=== PATIENT | male | born 1980 | race Caucasian/White ===

== ENCOUNTER 2019-01-22 20:28 | Emergency (ER) | payer SELFPAY ==
[~2019-01-22] VITALS: Ht 165.1 cm; Wt 71.3 kg
[2019-01-22 20:35] VITALS: BP 122/70
--- NOTE | 2019-01-22 20:37 | NUR ---
TO LOBBY A/W BED AMBULATORY
--- NOTE | 2019-01-22 20:58 | NUR ---
PT TAKEN TO BED 12.
--- NOTE | 2019-01-22 21:08 | NUR ---
38 Y/O M PRESENTED TO ED WITH C/O GENERALIZED ABDOMEN PAIN X3 DAYS. 8/10 PAIN, BURNING AND PRESSURE-LIKE. PER PT "HAD THIS PAIN FOR OVER A YEAR BUT IT HAS GOTTEN WORSE." TENDERNESS TO LOWER ABDOMEN. DENIES DYSURIA AND HEMATURIA. -N/V/D. FAMILY AT BEDSIDE. ERMD NOTIFIED. WILL CONTINUE TO MONITOR.
[2019-01-22] MEDS ORDERED: NACL 0.9% 1,000 ML IV SCH (21:33)
[2019-01-22] MEDS ORDERED: KETOROLAC 15 MG/ML VIAL IVP ONE (21:35)
[2019-01-22 22:40] LABS: BASOPHILS % (AUTO) 0.1 % (0.0-2.0); HEMATOCRIT 42.9 % (36-52); HEMOGLOBIN 14.3 g/dL (12.0-18.0); LYMPHOCYTES # (AUTO) 0.9 K/uL (2.0-11.5); MEAN CORPUSCULAR HEMOGLOBIN 30 pg (27-31); MEAN CORPUSCULAR HGB CONC 33 g/dL (33-37); MONOCYTES # (AUTO) 1.4 K/uL (0.8-1.0); MONOCYTES % (AUTO) 11.4 % (1.7-9.3); NEUTROPHILS # (AUTO) 9.6 K/uL (1.8-7.7); NEUTROPHILS % (AUTO) 81.2 % (42.2-75.2); PLATELET COUNT (AUTO) 289 K/uL (140-450); RED BLOOD CELL COUNT(AUTO) 4.77 MIL/uL (4.20-6.10); RED CELL DISTRIBUTION WIDTH 13.9 % (11.6-13.7); WHITE BLOOD COUNT (AUTO) 11.8 K/uL (4.8-10.8)
[2019-01-22 22:54] LABS: LYMPHOCYTES % (AUTO) 7.3 % (20.5-51.1)
[2019-01-22 23:03] LABS: ANION GAP 12.1 (8-16); CARBON DIOXIDE 28.4 mmol/L (21-32); CREATININE 0.8 mg/dL (0.7-1.3); POTASSIUM 3.5 mmol/L (3.5-5.1)
[2019-01-22 23:09] LABS: ALBUMIN 3.5 g/dL (3.4-5.0); TOTAL BILIRUBIN 0.6 mg/dL (0.0-1.0)
[2019-01-22 23:09] LABS: APPEARANCE,URINE CLEAR (CLEAR); BILIRUBIN,URINE NEGATIVE (NEGATIVE); BLOOD, URINE NEGATIVE (NEGATIVE); COLOR,URINE YELLOW (YELLOW); LEUKOCYTE ESTERASE ,URINE NEGATIVE (NEGATIVE); NITRITE, URINE NEGATIVE (NEGATIVE); UGLUCOSE NEGATIVE (NEGATIVE)
--- NOTE | 2019-01-22 23:33 | NUR ---
COVERING FOR PRIMARY RN. PT RESTING COMFORTABLY IN BED WITH FAMILY AT BEDSIDE. PT STATES IMPROVEMENT OF PAIN. . PT WAITING FOR RE-EVALUATION FROM ERMD. ALL NEEDS ADDRESSED AT THIS TIME. ALL QUESTIONS ANSWERED AND UPDATED PATIENT ON STATUS.
--- NOTE | 2019-01-23 00:01 | NUR ---
IV removed, catheter intact and site benign. Applied folded 4x4 gauze and tape to stop bleeding.
[2019-01-23 00:02] VITALS: BP 102/60
--- NOTE | 2019-01-23 00:02 | NUR ---
Patient discharged with v/s stable. Written and verbal after care instructions given and explained. Patient alert, oriented and verbalized understanding of instructions. Ambulatory with steady gait. All questions addressed prior to discharge. ID band removed. Patient advised to follow up with PMD. Rx of Prilosec given. Patient educated on indication of medication including possible reaction and side effects. Opportunity to ask questions provided and answered.
== END 2019-01-23 00:02 | disposition home or self-care (01) ==
LOC: MED 20:28
DX: R10.13 Epigastric pain (principal)
CPT/HCPCS: 36415; 74176; 80053; 81003; 83690; 85025; 96374; 99284; J1885; J7030

== ENCOUNTER 2020-03-20 04:25 | Inpatient (IN) | payer MEDICAID, SELFPAY ==
[~2020-03-20] VITALS: Ht 167.6 cm; Wt 65.3 kg
[2020-03-20] VITALS (9 sets, daily range): BP systolic 94–117; BP diastolic 51–68
--- NOTE | 2020-03-20 04:34 | NUR ---
PT TAKEN TO BED 4
--- NOTE | 2020-03-20 04:40 | NUR ---
pt presents to the ED with acute onset of lower abd pain. pt reports vomiting x3. Pt reports having diarrhea prior to arrival to ED. Pt denies other medical hx
--- NOTE | 2020-03-20 04:42 | NUR ---
Dr. Lau examining patient.
[2020-03-20] MEDS ORDERED: KETOROLAC 15 MG/ML VIAL IVP ONE (04:50)
[2020-03-20 05:09] LABS: BASOPHILS % (AUTO) 0.2 % (0.0-2.0); EOSINOPHILS % (AUTO) 0.3 % (0.0-4.0); HEMATOCRIT 43.8 % (36-52); HEMOGLOBIN 14.7 g/dL (12.0-18.0); LYMPHOCYTES % (AUTO) 10.2 % (20.5-51.1); MEAN CORPUSCULAR HEMOGLOBIN 30 pg (27-31); MEAN CORPUSCULAR HGB CONC 34 g/dL (33-37); MONOCYTES # (AUTO) 0.3 K/uL (0.8-1.0); NEUTROPHILS # (AUTO) 8.4 K/uL (1.8-7.7); NEUTROPHILS % (AUTO) 86.3 % (42.2-75.2); PLATELET COUNT (AUTO) 268 K/uL (140-450); RED BLOOD CELL COUNT(AUTO) 4.86 MIL/uL (4.20-6.10); RED CELL DISTRIBUTION WIDTH 13.2 % (11.6-13.7); WHITE BLOOD COUNT (AUTO) 9.7 K/uL (4.8-10.8)
--- NOTE | 2020-03-20 05:20 | NUR ---
PT RETURN FROM CT
[2020-03-20 05:23] LABS: ANION GAP 14.5 (8-16); CARBON DIOXIDE 24.9 mmol/L (21-32); CREATININE 0.9 mg/dL (0.6-1.3); POTASSIUM 3.4 mmol/L (3.5-5.1)
[2020-03-20] MEDS ORDERED: MORPHINE SULFATE 4 MG/ML SYR IVP ONE ×2 (05:40→07:35)
[2020-03-20] MEDS ORDERED: metroNIDAZOLE 500 MG/NS PREMIX 100 ML IV ONE (06:20)
[2020-03-20] MEDS ORDERED: cefTRIAXone 1,000 MG VIAL ONE ×2 (06:26→22:48)
[2020-03-20] MEDS ORDERED: NACL 0.9% 1,000 ML IV ONE (06:50)
--- NOTE | 2020-03-20 07:20 | NUR ---
RECEIVED REPORT FROM DANA PAGE. PT RESTING IN BED, RESPIRATIONS EVEN AND UNLABORED. ON BEDSIDE MONITOR.
--- NOTE | 2020-03-20 08:30 | NUR ---
PATIENT ARRIVED TO UNIT VIA WHEELCHAIR FROM ED. PATIENT IS AWAKE, ALERT, ORIENTED X4. RESP EVEN AND UNLABORED ON ROOM AIR. SKIN IS WARM AND INTACT. C/O PAIN TO ABDOMEN BUT TOLERABLE. PATIENT AMBULATORY WITH STEADY GAIT. IV ACCESS TO LAC IS INTACT AND PATENT. STANDARD PRECAUTION IN PLACE. NPO AT THIS TIME. MRSA NARES COLLECTED AND SENT TO LAB. SAFETY MEASURES IN PLACE. CALL LIGHT WITHIN REACH. PATIENT IS ABLE TO MAKE NEEDS KNOWN. WILL CONTINUE TO MONITOR.
--- NOTE | 2020-03-20 08:35 | NUR ---
Patient will be admitted to care of DR. SANCHEZ. Admited to M/S. Will go to room 105A. Belongings list completed. Report to JHOAN PAGE.
--- NOTE | 2020-03-20 10:50 | NUR ---
PATIENT IS UNCOMFORTABLE, MOANING IN BED, C/O PAIN TO ABD ON SCALE 10. NO NEW ADMITTING ORDERS AT THIS TIME. DR SANCHEZ WAS PAGED. AWAITING RETURN CALL.
--- NOTE | 2020-03-20 11:17 | NUR ---
TRAFFIC ENUMERATOR NOTE: Patient's Orientation Person Situation Place Time Information Provided By PATIENT Comments SW MET WITH PATIENT AT BEDSIDE. Employee Welfare Manager, Realtionship and Phone Number LEXY HECTOR [phone] [facility] Power of Dispensing Optician No Does Patient Have a POLST No Identifying Problems No Social Work Triggers Is A Social Work Consult Needed No Mandate Report Filed No Explanation Of Identifying Problems PATIENT IS A 39-YEAR-OLD MALE ADMITTED FOR APPENDICITIS. PATIENT HAS NO PERTINENT PMHX. Admitted From Home Pre-Admission Level Of Functioning Status Independent/Ambulatory Prior Resources/Services Used In Last 12 Months No Prior Resources Used Prior DME No Prior DME Used Living Situation Lives W/Significant Other House Patient Had Caregiver No Home Support No Caregiver Issues Financial Issues No Known Financial Issue Referral To The Financial Counselor Needed No Factors/Needs No D/C Needs Identified Pt/Rep Participated In Discharge Plan Yes Patient/Family Agress With Discharge Plan Yes Discharge Plan Comments TENTATIVE DISCHARGE PLAN IS FOR PATIENT TO RETURN HOME. DC Plan Status Initiated
--- NOTE | 2020-03-20 11:22 | NUR ---
DC PLANNIN YRS OLD MALE PATIENT WAS ADMITTED FROM HOME WITH A DX OF APPENDICITIS. PT HAS NO MEDICAL HISTORY. CXR SHOWED NO ACUTE PULMONARY DISEASE. CT ABD/PEL SHOWED APPENDICITIS. COVID TEST NEGATIVE. STARTED IVF AND PAIN MEDICATION WITH MORPHINE. CONSULTED WITH SURGEON DR SANCHEZ FOR POSSIBLE LAP APPY. DC PLAN TO GO HOME WHEN STABLE. CM TO FOLLOW
--- NOTE | 2020-03-20 11:45 | NUR ---
SPOKE TO DR SANCHEZ. RECEIVED TELEPHONE ORDERS FOR MORPHINE 4MG IVP Q2H PRN FOR SEVERE PAIN (7-10), CONTINUE FLAGYL AND ROCEPHIN, KEEP PATIENT ON NPO. TELEPHONE ORDERS READ BACK AND CONFIRMED.
[2020-03-20] MEDS: MORPHINE SULFATE 4 MG/ML SYR IVP PRN ×2 (12:07→16:19)
--- NOTE | 2020-03-20 14:02 | NUR ---
PATIENT IS COMFORTABLE IN BED. PAIN TO RIGHT ABD IS AT TOLERABLE LEVEL BUT STILL ACHING. RESP EVEN AND UNLABORED ON ROOM AIR. CALL LIGHT WITHIN REACH. WILL CONTINUE TO MONITOR.
--- NOTE | 2020-03-20 14:09 | NUR ---
CONSENT FOR LAPAROSCOPIC POSSIBLE OPEN APPENDECTOMY OBTAINED.
[2020-03-20] MEDS ORDERED: KCL 20 MEQ/WATER INJ PREMIX 200 ML IV SCH (15:00)
--- NOTE | 2020-03-20 15:07 | NUR ---
PATIENT HAS BEEN SCREENED AND CATEGORIZED LOW NUTRITION RISK. PATIENT WILL BE SEEN WITHIN 7 DAYS OF ADMISSION. 03/26/[address]
--- NOTE | 2020-03-20 16:03 | NUR ---
I/S GIVEN. PATIENT TEACHING PROVIDED. PATIENT VERBALIZED UNDERSTANDING.
[2020-03-20] MEDS: LACTATED RINGERS 1,000 ML IV SCH (17:23)
[2020-03-20] MEDS ORDERED: SUGAMMADEX SODIUM 200 MG/2 ML VIAL IV ONE (17:25)
[2020-03-20] MEDS ORDERED: SEVOFLURANE 250 ML BTL INH ONE (17:25)
[2020-03-20] MEDS ORDERED: DEXAMETHASONE 4 MG/ML VIAL ONE (17:25)
[2020-03-20] MEDS ORDERED: HYDROmorphone 1 MG/ML AMP IVP PRN ×2 (17:25→19:00)
[2020-03-20] MEDS ORDERED: SUCCINYLCHOLINE CHLORIDE 200 MG/10 ML VIAL IVP ONE (17:25)
[2020-03-20] MEDS ORDERED: PROPOFOL 200 MG/20 ML VIAL IV ONE (17:25)
[2020-03-20] MEDS ORDERED: fentaNYL citrate 0.05 MG/ML VIAL ONE (17:25)
[2020-03-20] MEDS ORDERED: MEPERIDINE 25 MG/ML SYR IVP PRN (17:25)
[2020-03-20] MEDS ORDERED: ROCURONIUM 50 MG/5 ML VIAL IV ONE (17:25)
[2020-03-20] MEDS ORDERED: ONDANSETRON 4 MG/2 ML VIAL IVP PRN (17:25)
[2020-03-20] MEDS ORDERED: ONDANSETRON 4 MG/2 ML VIAL ONE (17:25)
[2020-03-20] MEDS ORDERED: MIDAZOLAM 2 MG/2 ML VIAL ONE (17:25)
[2020-03-20] MEDS ORDERED: KETOROLAC 30 MG/ML VIAL ONE (17:25)
[2020-03-20] MEDS ORDERED: diphenhydrAMINE 50 MG/ML VIAL IVP PRN (17:25)
--- NOTE | 2020-03-20 17:25 | NUR ---
PATIENT LEFT TO OR FOR LAP POSS OPEN APPENDECTOMY. PATIENT LEFT IN STABLE CONDITION.
[2020-03-20] MEDS ORDERED: LIDOCAINE 1% 500 MG/50 ML VIAL ONE (17:46)
[2020-03-20] MEDS: LIDOCAINE 1% 500 MG/50 ML VIAL ONE ×2 (18:12→19:05)
[2020-03-20] MEDS: BUPIVACAINE-MPF 0.25% 30 ML VIAL INJ ONE ×2 (18:12→19:04)
[2020-03-20] MEDS ORDERED: MORPHINE SULFATE 4 MG/ML SYR IV PRN (19:00)
[2020-03-20] MEDS ORDERED: MORPHINE SULFATE 2 MG/ML SYR IVP PRN (19:00)
--- NOTE | 2020-03-20 19:26 | NUR ---
PATIENT STILL IN THE OR. ENDORSED TO NIGHT NURSE.
--- NOTE | 2020-03-20 19:55 | NUR ---
PT IS BACK FROM SURGERY. RECEIVED REPORT FROM OR NURSE. PT ARRIVED VIA BED. AWAKE AND ALERT, A&O X4. PT IS IN PAIN 01/31. JUST RECEIVED DEMEROL THIRTY MIN PRIOR PER OR NURSE. RESPIRATIONS ARE UNLABORED. CHEST RISE AND FALL IS SYMMETRICAL. BP IS 98/57, PULSE 70, TEMP 97.7, 97% O2 SAT, RESPIRATION 16. WAS TOLD BY OR NURSE TO NOTIFY DR. SANCHEZ IF PT IS BOTH HYPOTENSIVE AND TACHYCARDIC. THREE BANDAIDS ARE IN PLACE ON THE RIGHT TO MIDDLE, LOWER ABDOMEN WITH NO DRAINAGE PRESENT. WILL MONITOR PT CLOSELY.
--- NOTE | 2020-03-20 21:00 | NUR ---
SPOKE TO , LEXY, AND UPDATED HER THAT PT IS BACK FROM SURGERY. PT IS ASLEEP AT THIS TIME. BREATHING IS UNLABORED. NO DISTRESS NOTED. PLAN OF CARE WAS DISCUSSED. LEXY SAID SHE WOULD CALL BACK IN THE AM TO FIND OUT ABOUT DISCHARGE.
--- NOTE | 2020-03-20 21:08 | NUR ---
SPOKE TO PHARMACY ON THE PHONE AND WAS INFORMED THAT ROCEPHIN ABX IS NOT COMPATIBLE WITH LR FLUIDS. WILL STOP LR WHILE ADMINISTERING ROCEPHIN.
[2020-03-20] MEDS: metroNIDAZOLE 500 MG/NS PREMIX 100 ML IV SCH (21:32)
[2020-03-20] MEDS: HYDROcodone/APAP 5/325 MG 1 TAB TAB PO PRN (21:33)
--- NOTE | 2020-03-20 21:33 | NUR ---
NORCO WAS GIVEN PRN FOR PAIN AT A LEVEL OF 6/10. PT SAID PAIN IS IN THE LOWER ABD AT THE INCISION SITES WITH AN ACHING PAIN. WILL CONTINUE TO MONITOR PAIN.
--- NOTE | 2020-03-20 23:30 | NUR ---
PT IS AWAKE. PT VOIDED IN URINAL. PT SAYS PAIN HAS IMPROVED AND IT IS A 3/10. SLIGHT PAIN IN THE ABDOMEN AREA WHERE THE INCISION SITES ARE. NO DISTRESS NOTED.
[2020-03-21] VITALS: BP 100/53
[2020-03-21] MEDS: LACTATED RINGERS 1,000 ML IV SCH ×2 (01:23→05:07)
--- NOTE | 2020-03-21 01:24 | NUR ---
PT IS ASLEEP ON AND OFF. CURRENTLY AWAKE AND DENIES ANY PAIN. NO DRAINAGE ON BANDAGE AT INCISIONAL SITES. PT STATES HE ONLY FEELS PAIN WHEN HE MOVES. WILL CONTINUE TO MONITOR PAIN.
--- NOTE | 2020-03-21 03:00 | NUR ---
PT WAS GIVEN BLANKET FOR COMFORT. MORE WATER WAS PROVIDED AT [facility]. NEEDS ARE MET. PT IS STABLE AT THIS TIME.
[2020-03-21] MEDS: HYDROcodone/APAP 5/325 MG 1 TAB TAB PO PRN (04:10)
--- NOTE | 2020-03-21 04:10 | NUR ---
PT COMPLAINS OF PAIN IN HIS LOWER ABDOMEN WHERE THE INCISION SITES ARE. PT STATES IT IS AN ACHING PAIN OF A SCALE OF 5/10. ADMINISTERED NORCO PRN. WILL CONTINUE TO MONITOR PAIN.
[2020-03-21] MEDS: metroNIDAZOLE 500 MG/NS PREMIX 100 ML IV SCH (04:59)
[2020-03-21 06:07] LABS: BASOPHILS % (AUTO) 0.2 % (0.0-2.0); HEMATOCRIT 43.7 % (36-52); HEMOGLOBIN 14.4 g/dL (12.0-18.0); LYMPHOCYTES # (AUTO) 0.7 K/uL (2.0-11.5); LYMPHOCYTES % (AUTO) 5.2 % (20.5-51.1); MEAN CORPUSCULAR HEMOGLOBIN 30 pg (27-31); MEAN CORPUSCULAR HGB CONC 33 g/dL (33-37); MEAN CORPUSCULAR VOLUME 90.6 fL (80-94); MONOCYTES # (AUTO) 0.5 K/uL (0.8-1.0); MONOCYTES % (AUTO) 3.6 % (1.7-9.3); NEUTROPHILS # (AUTO) 12.6 K/uL (1.8-7.7); PLATELET COUNT (AUTO) 270 K/uL (140-450); RED BLOOD CELL COUNT(AUTO) 4.82 MIL/uL (4.20-6.10); RED CELL DISTRIBUTION WIDTH 13.6 % (11.6-13.7); WHITE BLOOD COUNT (AUTO) 13.9 K/uL (4.8-10.8)
--- NOTE | 2020-03-21 06:10 | NUR ---
PROVIDED PT TEACHING FOR INCENTIVE SPIROMETER. INFORMED PT TO PERFORM 10 TIMES AN HOUR TO EXPAND LUNGS. ENCOURAGED PT TO AMBULATE TO THE RESTROOM INSTEAD OF USING URINAL. PT VERBALIZED UNDERSTANDING.
--- NOTE | 2020-03-21 07:05 | NUR ---
ENDORSED PT TO DAY SHIFT NURSE FOR CONTINUITY OF CARE. PT IS STABLE AT THIS TIME.
--- NOTE | 2020-03-21 07:20 | NUR ---
SHIFT REPORT RECEIVED FROM MANAGER UNIVERSITY NURSE. PT IS WAKE AND RESPONSIVE. IN IN PLACE. NO DISTRESS. NO COMPLAINS OF PAIN. CALL LIGHT IN REACH. WILL CONTINUE TO MONITOR.
[2020-03-21 08:00] VITALS: BP 104/61
--- NOTE | 2020-03-21 09:00 | NUR ---
PT IS AWAKE AND RESPONSIVE. VIAL SIGNS WNL. NO DISTRESS. NO COMPLAINS OF PAIN. IV IN PLACE. LUNGS CLEAR. O2 SATS 98%. INCISION INTACT. NO BLEEDING NOTED. BED IN LOW POSITION. CALL LIGHT IN REACH.
[2020-03-21] MEDS ORDERED: HYDR-5122 PO ×2 (11:29→11:30)
--- NOTE | 2020-03-21 11:30 | NUR ---
PT IS AWAKE AND RESPONSIVE. NO DISTRESS NOTED. WILL CONTINUE TO MONITOR.
[2020-03-21] MEDS ORDERED: AMOX-999 PO (11:32)
--- NOTE | 2020-03-21 13:00 | NUR ---
PT WAS D/C TODAY TO HOME. PICKED UP IN CAR. DISCHARGE INSTRUCTIONS GIVEN TO PT. PAIN TO INCISION SITE TOLERABLE. NO DISCHARGE FROM INCISION SITE. DRY AND INTACT. PRESCRIPTION GIVEN TO PT. PT WILL F/U WITH PCP UPON D/C. ID BAND REMOVED. INCISION PHOTO TAKEN. IV REMOVED. PT STABLE. BELONGINGS WITH PT.
== END 2020-03-21 13:00 | disposition home or self-care (01) | DRG 233 ==
LOC: MED 04:25 → MMU 06:19 → MTU 08:04
PROVIDERS: ADMIT Surgery; ATTEND Surgery
PROC: 0DTJ4ZZ Resection of Appendix, Percutaneous Endoscopic Approach (ICD-10-PCS; principal; 2020-03-20 17:30)
DX: K35.30 Acute appendicitis with localized peritonitis, without perforation or gangrene (principal); Z20.828 Contact with and (suspected) exposure to other viral communicable diseases; E87.6 Hypokalemia; D72.829 Elevated white blood cell count, unspecified; K38.1 Appendicular concretions
CPT/HCPCS: 36415; 71045; 80053; 83690; 85025; 86886; 86900; 86901; 87081; 88304; 96365; 96368; 96375; 99285; J0330; J0696; J1100; J1885; J2001; J2175; J2250; J2270; J2405; J2704; J3010; J3480; J3490; J7030; J7060; J7120; Q0092